=== PATIENT | female | born 2000 | race African-American/Black ===

== ENCOUNTER 2020-08-16 14:42 | Emergency (ER) | payer OTHER ==
--- NOTE | 2020-08-16 15:38 | ER Document Report ---
ED Medical Screen (RME) - General Chief Complaint: Vaginal Bleeding Stated Complaint: VAGINAL BLEEDING Time Seen by Provider: 08/16/20 15:23 - HPI Notes: 08/16/20 15:33 19-year-old female presents to the emergency room today for complaints of anal bleeding after a bowel movement for the last 6 months. Decided to come to the emergency room today for evaluation. Unsure if she has a history of hemorrhoids. She went to urgent care, they advised that she follows up with her TREATER. She states she tried [id number] Preparation H without relief. Reports she does have painful bowel movements. Reports she has not been st raining with bowel movements. Last menstrual cycle was 07/28/2020. Denies any vaginal bleeding. Due to the fact were in triage, I do not have a bed to do a rectal evaluation, nor other privacy. I discussed with patient that she does need a rectal examination. She agreed to wait to be seen in the back. I have greeted and performed a rapid initial assessment of this patient. A comprehensive ED assessment and evaluation of the patient, analysis of test results and completion of the medical decision making process will be conducted by additional ED providers. PHYSICAL EXAMINATION: GENERAL: Well-appearing, well-nourished and in no acute distress. CV: s1, s2 regular LUNGS: No respiratory distress The patient was evaluated during a global COVID-19 pandemic and that diagnosis was suspected/considered upon their initial presentation. Their evaluation, treatment and testing was consistent with current guidelines for patients who present with complaints or symptoms and may be related to COVID-19. I Physical Exam - Vital signs Vitals: Temp Pulse Resp BP Pulse Ox 98.4 F 97 H 16 130/67 H 99 08/16/20 14:43 08/16/20 14:43 08/16/20 14:43 08/16/20 14:43 08/16/20 14:43 Course - Vital Signs Vital signs: Temp Pulse Resp BP Pulse Ox 98.4 F 97 H 16 130/67 H 99 08/16/20 14:43 08/16/20 14:43 08/16/20 14:43 08/16/20 14:43 08/16/20 14:43
--- NOTE | 2020-08-16 16:03 | ER Document Report ---
HPI - HPI Time Seen by Provider: 08/16/20 15:23 Pain Level: 3 Notes: 19-year-old female presents to the emergency room today for complaints of anal bleeding after a bowel movement for the last 6 months. Decided to come to the emergency room today for evaluation. Unsure if she has a history of hemorrhoids. 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 She states she tried [id number] Preparation H without relief. Reports she does have painful bowel movements. Reports she has not been straining with bowel movements. Last menstrual cycle was 07/28/2020. Denies any vaginal bleeding. Denies fevers, chills, chest pain,palpitations, shortness of breath, dyspnea, nausea, vomiting, diarrhea, abdominal pain, hematuria,b LH, dizziness, syncope, headaches, wheezing, ST, URI, neck pain, weakness, bowel or bladder dysfunction, saddle anesthesia, numbness or tingling in bilateral upper or lower extremities equally, muscle paralysis, weakness in bilateral upper or lower extremities equally or rash. - REPRODUCTIVE LMP: 28 july Reproductive: DENIES: : Past Medical History - General Information source: Patient - Social History Smoking Status: Never Smoker Frequency of alcohol use: Occasional Family History: Reviewed & Not Pertinent Patient has homicidal ideation: No Vertical Provider Document - CONSTITUTIONAL Agree With Documented VS: Yes Exam Limitations: No Limitations General Appearance: WD/WN Notes: MEDICATIONS: I agree with the patient medications as charted by the RN. ALLERGIES: I agree with the allergies as charted by the RN. PAST MEDICAL HISTORY/PAST SURGICAL HISTORY: Reviewed and agree as charted by RN. SOCIAL HISTORY: Reviewed and agree as charted by RN. FAMILY HISTORY: No significant familial comorbid conditions directly related to patient complaint EXAM: Reviewed vital signs as charted by RN. PHYSICAL EXAMINATION: reviewed vital signs by RN GENERAL: Well-appearing, well-nourished and in no acute distress. HEAD: Atraumatic, normocephalic. EYES: Pupils equal round and reactive to light, extraocular movements intact, conjunctiva are normal. ENT: Nares patent, oropharynx clear without exudates. Moist mucous membranes. NECK: Normal range of motion, supple without lymphadenopathy LUNGS: Breath sounds clear to auscultation bilaterally and equal. No wheezes rales or rhonchi. HEART: Regular rate and rhythm without murmurs ABDOMEN: Soft, nontender, nondistended abdomen. No guarding, no rebound. No masses appreciated. Female : Rectum with external nonthrombosed hemorrhoid at 6 o'clock Musculoskeletal: Normal range of motion, no pitting or edema. No cyanosis. NEUROLOGICAL: Cranial nerves grossly intact. Normal speech, normal gait. Normal sensory, motor exams PSYCH: Normal mood, normal affect. SKIN: Warm, Dry, normal turgor, no rashes or lesions noted. Course - Re-evaluation Re-evalutation: 08/16/20 16:10 Afebrile vital stable no distress. Nurses notes reviewed. Presentation is most consistent with uncomplicated external hemorrhoids. I do not suspect a more significant lower GI bleed or upper GI bleed based on history, vitals, and patient's overall well appearance. The patient will be discharged home on conservative treatment recommendations as well as recommendations for close outpatient follow-up. Return precautions have been reviewed. After performing a Medical Screening Examination, I estimate there is LOW risk for ACUTE APPENDICITIS, BOWEL OBSTRUCTION, ACUTE CHOLECYSTITIS, PERFORATED DIVERTICULITIS, INCARCERATED HERNIA, PANCREATITIS, PELVIC INFLAMMATORY DISEASE, PERFORATED ULCER, ECTOPIC , or TUBO-OVARIAN ABSCESS, thus I consider the discharge disposition reasonable. Also, there is no evidence or peritonitis, sepsis, or toxicity. I have reevaluated this patient multiple times and no significant life threatening changes are noted. The patient and I have discussed the diagnosis and risks, and we agree with discharging home with close follow-up with the unde rstanding that symptoms and presentations can change. We also discussed returning to the Emergency Department immediately if new or worsening symptoms occur. We have discussed the symptoms which are most concerning (e.g., bloody stool, fever, changing or worsening pain, vomiting) that necessitate immediate return. - Vital Signs Vital signs: Temp Pulse Resp BP Pulse Ox 98.4 F 97 H 16 130/67 H 99 08/16/20 14:43 08/16/20 14:43 08/16/20 14:43 08/16/20 14:43 08/16/20 14:43 - Laboratory Results Critical Laboratory Results Reviewed: No Critical Results - Radiology Results Critical Radiology Results Reviewed: No Critical Results Discharge - Discharge Clinical Impression: Hemorrhoids, external without complications Condition: Stable Disposition: HOME, SELF-CARE Instructions: Hemorrhoids ([facility]) Additional Instructions: You were seen today for hemorrhoids. The best treatment is to avoid straining while having bowel moments, avoiding heavy lifting, or any other activity that causes you to bear down forcefully. You need to make sure that your stools are soft and should start taking Docusate 200mg in the morning and at night until your stools are very soft and you can have a bowel movement without any straining. You can also soak in warm water, apply topical hemorrhoid cream that can be purchased at the store, and take tylenol or ibuprofen per box instructions as needed for pain. Please follow-up with your primary doctor. Return if you begin to have persistent bleeding, worsening pain, abdominal pain, fever >101, or any other symptoms that are concerning to you. Return immediately for any new or worsening symptoms. Follow up with primary care provider, call tomorrow to make followup appointment. Prescriptions: Phenylephrine HCl [Anusol Suppository] 1 supp.rect MT BID #28 supp.rect Hydrocortisone [Anusol-Hc] 30 gm RC BID #1 cream.gm. Referrals: SUZETTE HOLBROOK MD [COMMUNITY BASED STAFF] - Follow up as needed
[2020-08-16 16:44] VITALS: BP 119/71
== END 2020-08-16 16:53 | disposition home or self-care (01) ==
LOC: ER 14:42
DX: K64.4 Residual hemorrhoidal skin tags (principal)
CPT/HCPCS: 99284

== ENCOUNTER 2020-09-04 13:27 | Emergency (ER) | payer OTHER ==
--- NOTE | 2020-09-04 14:15 | ER Document Report ---
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 Patient is concerned that she may be miscarrying. Denies any nausea, vomiting, diarrhea, abdominal pain, fever chills, chest pain or shortness of breath. Denies any trauma. States she does have regular menstrual cycles. She reports this is her first . I have greeted and performed a rapid initial assessment of this patient. A comprehensive ED assessment and evaluation of the patient, analysis of test results and completion of the medical decision making process will be conducted by additional ED providers. PHYSICAL EXAMINATION: GENERAL: Well-appearing, well-nourished and in no acute distress. CV: s1, s2 regular LUNGS: No respiratory distress abd: suprapubic tenderness, no cva tenderness Musculoskeletal: Normal range of motion NEUROLOGICAL: Normal speech, normal gait. SKIN: Warm, Dry, normal turgor, no rashes or lesions noted. The patient was evaluated during a global COVID-19 pandemic and that diagnosis was suspected/considered upon their initial presentation. Their evaluation, treatment and testing was consistent with current guidelines for patients who present with complaints or symptoms and may be related to COVID-19. Physical Exam - Vital signs Vitals: Temp Pulse Resp BP Pulse Ox 98.9 F 113 H 16 130/74 H 99 09/04/20 13:09/04/20 13:09/04/20 13:09/04/20 13:09/04/20 13:31 Course - Vital Signs Vital signs: Temp Pulse Resp BP Pulse Ox 98.9 F 113 H 16 130/74 H 99 09/04/20 13:09/04/20 13:31 09/04/20 13:31 09/04/20 13:31 09/04/20 13:31
[2020-09-04 14:36] LABS: ABSOLUTE BASOPHILS # (AUTO) 0.1 10^3/uL (0.0-0.2); ABSOLUTE EOSINOPHILS # (AUTO) 0.1 10^3/uL (0.0-0.6); ABSOLUTE LYMPHOCYTES (AUTO) 1.9 10^3/uL (0.5-4.7); ABSOLUTE MONOCYTES (AUTO) 0.5 10^3/uL (0.1-1.4); ABSOLUTE NEUT (AUTO) 5.9 10^3/uL (1.7-8.2); BASOPHILS % (AUTO) 0.8 % (0-2); EOSINOPHILS % (AUTO) 0.8 % (0-6); HEMATOCRIT 34.8 % (36.0-47.0); HEMOGLOBIN 11.7 g/dL (12.0-15.5); LYMPHOCYTES % (AUTO) 22.9 % (13-45); MEAN CORPUSCULAR HEMOGLOBIN 22.8 pg (27.0-33.4); MEAN CORPUSCULAR HGB CONC 33.7 g/dL (32.0-36.0); MEAN CORPUSCULAR VOLUME 68 fl (80-97); MONOCYTES % (AUTO) 6.3 % (3-13); PLATELET COUNT 283 10^3/uL (150-450); RED BLOOD COUNT 5.15 10^6/uL (3.72-5.28); RED CELL DISTRIBUTION WIDTH 16.4 % (11.5-14.0); SEGMENTED NEUTROPHILS % (AUTO) 69.2 % (42-78); TOTAL CELLS COUNTED % (AUTO) 100 %; WHITE BLOOD COUNT 8.5 10^3/uL (4.0-10.5)
[2020-09-04 14:59] LABS: ALBUMIN 4.5 g/dL (3.7-5.6); ALKALINE PHOSPHATASE 103 U/L (50-135); ANION GAP 9 (5-19); ASPARTATE AMINO TRANSFERASE 26 U/L (5-30); BILIRUBIN,DIRECT 0.1 mg/dL (0.0-0.4); BILIRUBIN,TOTAL 0.3 mg/dL (0.2-1.3); BLOOD UREA NITROGEN 9 mg/dL (7-20); CALCIUM 9.6 mg/dL (8.4-10.2); CARBON DIOXIDE 25 mmol/L (22-30); CHLORIDE 104 mmol/L (98-107); GLUCOSE 99 mg/dL (75-110); TOTAL PROTEIN 7.9 g/dL (6.3-8.2)
--- NOTE | 2020-09-04 15:48 | RADIOLOGY REPORT (SQ) ---
EXAM DESCRIPTION: U/S OB TRANSVAGINAL W/O DOP IMAGES COMPLETED DATE/TIME: 09/04/2020 2:53 pm REASON FOR STUDY: vaginal spotting, lmp 07/28/20, +preg test today COMPARISON: None. TECHNIQUE: Transvaginal static and realtime grayscale images acquired of the pelvis. Additional leo cted spectral and color Doppler images recorded. All images stored on PACs. CLINICAL AGE: 5 weeks 3 days bHCG: Not available. LIMITATIONS: None. FINDINGS: UTERUS: No masses. No anomalies. GESTATIONAL SAC: Abnormal shape. Sac diameter corresponding to 5 weeks. YOLK SAC: No. POLE: None present RIGHT ADNEXA: Normal ovary with normal vascular flow. No adnexal free fluid. No adnexal masses. LEFT ADNEXA: Normal ovary with normal vascular flow. No adnexal free fluid. No adnexal masses. FREE FLUID: None. OTHER: No other significant finding. IMPRESSION: POSSIBLE EARLY INTRAUTERINE . BHCG LEVEL NOT AVAILABLE FOR CORRELATION WITH US FINDINGS. CONSIDER F/U BHCG AND/OR ULTRASOUND FOR VERIFICATION AND TO EXCLUDE ECTOPIC . Trimester of : First trimester - 0 to 13 weeks. TECHNICAL DOCUMENTATION: JOB ID: [id number] 2010 [employer]- All Rights Reserved Reading location - IP/workstation name: [email or web address]
--- NOTE | 2020-09-04 16:03 | ER Document Report ---
ED GI/ - General Chief Complaint: Abdominal Pain Stated Complaint: ABDOMINAL PAIN/5 WKS PREG Time Seen by Provider: 09/04/20 13:51 Primary Care Provider: [facility] [Provider Group] - Follow up in 3-5 days Notes: Patient is a G1, P0 19-year-old female presents emergency department with a chief complaint of vaginal bleeding. Patient reports that she noticed some vaginal bleeding this morning. She went to her SWIFT TENDER this morning for a normal checkup and found out that she was . She was then referred to [facility]. She came to the emergency department to get an ultras ound and have her labs drawn. She does have a follow-up appointment with [facility] on the . She denies any excessive sex. Denies any vaginal discharge. States that she was tested for gonorrhea and chlamydia and had a wet mount done over at her normal SWIFT TENDER. Denies dysuria or vaginal discharge. - Related Data Home Medications: vitamin Past Medical History - General Information source: Patient - Social History Smoking Status: Current Some Day Smoker Family History: Reviewed & Not Pertinent Review of Systems - Review of Systems Notes: REVIEW OF SYSTEMS: CONSTITUTIONAL : Denies recent illness. Denies recent unintentional weight loss. Denies fever, chills, or sweats. EENT: Denies eye, ear, throat, or mouth pain, discharge, or symptoms. Denies nasal or sinus congestion. CARDIOVASCULAR: Denies chest pain. RESPIRATORY: Denies shortness of breath, cough, congestion, difficulty breathing, or wheezing. GASTROINTESTINAL: Denies nausea, vomiting, and diarrhea. Denies abdominal pain. Denies constipation. GENITOURINARY: Denies difficulty urinating, burning, blood in urine, urgency or frequency. FEMALE GENITOURINARY: See HPI. MUSCULOSKELETAL: Denies neck and back pain. Denies joint pain or swelling. SKIN: Denies rash, itchiness, or lesions HEMATOLOGIC : Denies easy bruising or bleeding. LYMPHATIC: Denies swollen, painful, enlarged glands. NEUROLOGICAL: Denies no numbness or tingling denies weakness. Denies headache. Denies altered mental status. Denies alteration in speech. PSYCHIATRIC: Denies stress, anxiety, alteration in sleep patterns, or depression. All other systems reviewed and negative. Physical Exam - Vital signs Vitals: Temp Pulse Resp BP Pulse Ox 98.9 F 113 H 16 130/74 H 99 09/04/20 13:31 09/04/20 13:31 09/04/20 13:31 09/04/20 13:31 09/04/20 13:31 - Notes Notes: PHYSICAL EXAMINATION: GENERAL: Appears well, healthy, well-nourished, no acute distress. HEAD: Normocephalic, atraumatic. EYES: PERRL, conjunctiva normal, all extraocular movements intact, sclera nonicteric ENT: Moist mucous membranes. NECK: Supple, no noticeable swelling, redness, rash. Normal range of motion. LUNGS: Equal breath sounds bilaterally and clear to auscultation. No wheezes rales or rhonchi. CARDIOVASCULAR: S1-S2, regular rate, regular rhythm. Radial pulses 2+, normal. ABDOMEN: Normoactive bowel sounds. Soft, nontender, no guarding, no rebound te nderness, and no masses palpated. EXTREMITIES: Normal strength and range of motion, no pitting or edema. No cyanosis. NEUROLOGICAL: Moves all extremities upon command. Strength 5/5 in all extremi ties. PSYCH: Normal mood, normal affect. SKIN: Warm, dry. No rash, lesions, ulcerations noted. Normal skin turgor. Course - Re-evaluation Re-evalutation: 09/04/20 16:35 Hematology is unremarkable, other than a slight anemia with a hemoglobin of 11.7. Chemistries are unremarkable. LFTs are normal. Beta hCG is 1074. This is consistent with her transvaginal ultrasound shows a 5-week 3-day gestational sac. Patient is O+. No RhoGam indicated. Patient agrees [facility]. Follow-up precautions were given. Verbal discharge instructions were given to the patient. They verbalized understanding. They are stable for discharge. - Vital Signs Vital signs: Temp Pulse Resp BP Pulse Ox 98.9 F 98 H 18 128/72 H 100 09/04/20 13:31 09/04/20 16:54 09/04/20 16:54 09/04/20 16:54 09/04/20 16:54 - Laboratory Results Result Diagrams: 09/04/20 14:15 09/04/20 14:15 Laboratory Results Interpreted: 01/12/21 01/12/21 14:15 14:15 Hgb 11.7 L Hct 34.8 L MCV 68 L MCH 22.8 L RDW 16.4 H Beta HCG, Quant 1074.50 H Critical Laboratory Results Reviewed: No Critical Results - Radiology Results Critical Radiology Results Reviewed: No Critical Results Discharge - Discharge Clinical Impression: Vaginal bleeding during Condition: Stable Disposition: HOME, SELF-CARE Additional Instructions: Your ultrasound today shows a gestational sac. Please follow closely with your primary care SWIFT TENDER. Please return if you develop severe abdominal pain, bleeding that goes through more than 2 pads for more than 2 hours, pass out, or have any other symptoms that are concerning to you. Please follow-up closely with your OBGYN regarding todays visit. Referrals: [facility] [Provider Group] - Follow up in 3-5 days
[2020-09-04 16:55] VITALS: BP 128/72
== END 2020-09-04 16:55 | disposition home or self-care (01) ==
LOC: ER 13:27
DX: O20.9 Hemorrhage in early pregnancy, unspecified (principal); O99.011 Anemia complicating pregnancy, first trimester; D64.9 Anemia, unspecified; O99.331 Smoking (tobacco) complicating pregnancy, first trimester; F17.200 Nicotine dependence, unspecified, uncomplicated; Z79.899 Other long term (current) drug therapy; Z3A.01 Less than 8 weeks gestation of pregnancy
CPT/HCPCS: 36415; 76817; 80053; 84702; 85025; 86900; 86901; 99284

== ENCOUNTER 2020-09-08 12:28 | Emergency (ER) | payer OTHER ==
--- NOTE | 2020-09-08 12:56 | ER Document Report ---
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 Patient sees [facility]. Has not yet had ultrasound imaging for this . She was concerned about the spotting today has not even had to use a menstrual pad it was only when she was wiping after urinating. Patient was concerned and came to the emergency department. Patient believes she is approximately 5 to 6 weeks by dates PHYSICAL EXAMINATION: exam deferred in triage no tenderness on palpation of the abdomen gravid uterus not palpable. I have greeted and performed a rapid initial assessment of this patient. A comprehensive ED assessment and evaluation of the patient, analysis of test results and completion of medical decision making process will be conducted by an additional ED providers. Please note that clinical decision making for this patient was made during the 2019 pandemic of novel coronavirus which caused a significant strain on the healthcare system including at this particular facility. Criteria for admission discharge and level of care decisions as well as treatment decisions have necessarily changed - Related Data Allergies/Adverse Reactions: No Known Allergies Allergy (Unverified 09/08/20 12:45) Home Medications: Past Medical History - Social History Chew tobacco use (# tins/day): No Frequency of alcohol use: Occasional Drug Abuse: None Physical Exam - Vital signs Vitals: Temp Pulse Resp BP Pulse Ox 98.1 F 95 H 20 130/78 H 99 09/08/20 12:32 09/08/20 12:32 09/08/20 12:32 09/08/20 12:32 09/08/20 12:32 Course - Vital Signs Vital signs: Temp Pulse Resp BP Pulse Ox 98.1 F 95 H 20 130/78 H 99 09/08/20 12:32 09/08/20 12:32 09/08/20 12:32 09/08/20 12:32 09/08/20 12:32
[2020-09-08 13:52] LABS: APPEARANCE,URINE CLEAR; BILIRUBIN,URINE NEGATIVE (NEGATIVE); COLOR,URINE YELLOW; GLUCOSE, URINE NEGATIVE (NEGATIVE); KETONES,URINE NEGATIVE (NEGATIVE); LEUKOCYTE ESTERASE,URINE MODERATE (NEGATIVE); NITRITE,URINE NEGATIVE (NEGATIVE); PROTEIN,URINE NEGATIVE (NEGATIVE); URINE SPECIFIC GRAVITY 1.016; UROBILINOGEN,URINE NEGATIVE mg/dL (<2.0)
--- NOTE | 2020-09-08 14:03 | RADIOLOGY REPORT (SQ) ---
EXAM DESCRIPTION: U/S OB TRANSVAGINAL W/O DOP IMAGES COMPLETED DATE/TIME: 09/08/2020 1:37 pm REASON FOR STUDY: vag spotting COMPARISON: 09/04/2020 TECHNIQUE: Endovaginal static and realtime grayscale images acquired of the pelvis. Additional selec rocky spectral and color Doppler images recorded. All images stored on PACs. CLINICAL AGE: Last menses 07/28/2020 bHCG: Not available LIMITATIONS: None. FINDINGS: UTERUS: No masses. No anomalies. Uterus measures 8 x 5 x 4 cm in size GESTATIONAL SAC: Normal shape. Surrounding decidual reaction. Gestational sac diameter of 6.9 mm co rrelates with 5 weeks 5 days. YOLK SAC: Not identified POLE: Not identified RIGHT ADNEXA: Normal ovary with normal vascular flow. Right ovary 3.1 x 2.4 x 1.7 cm No adnexal free fluid. No adnexal masses. LEFT ADNEXA: Normal ovary with normal vascular flow. Left ovary 3.4 x 2.1 x 2.1 cm in size. 16 mm l eft ovarian cyst likely the corpus luteum. No adnexal free fluid. No adnexal masses. FREE FLUID: None. OTHER: No other significant finding. IMPRESSION: EARLY INTRAUTERINE . Estimated age 5 weeks 5 days 16 mm cyst left ovary, likely the corpus luteum. Trimester of : First trimester - 0 to 13 weeks. TECHNICAL DOCUMENTATION: JOB ID: [id number] 2010 [employer]- All Rights Reserved Reading location - IP/workstation name: [id number]
[2020-09-08 15:23] LABS: ABSOLUTE BASOPHILS # (AUTO) 0.1 10^3/uL (0.0-0.2); ABSOLUTE EOSINOPHILS # (AUTO) 0.1 10^3/uL (0.0-0.6); ABSOLUTE LYMPHOCYTES (AUTO) 2.1 10^3/uL (0.5-4.7); ABSOLUTE MONOCYTES (AUTO) 0.5 10^3/uL (0.1-1.4); ABSOLUTE NEUT (AUTO) 5.3 10^3/uL (1.7-8.2); BASOPHILS % (AUTO) 1.2 % (0-2); EOSINOPHILS % (AUTO) 0.8 % (0-6); HEMATOCRIT 38.2 % (36.0-47.0); HEMOGLOBIN 12.8 g/dL (12.0-15.5); LYMPHOCYTES % (AUTO) 26.3 % (13-45); MEAN CORPUSCULAR HEMOGLOBIN 22.7 pg (27.0-33.4); MEAN CORPUSCULAR HGB CONC 33.4 g/dL (32.0-36.0); MEAN CORPUSCULAR VOLUME 68 fl (80-97); MONOCYTES % (AUTO) 6.5 % (3-13); PLATELET COUNT 260 10^3/uL (150-450); RED BLOOD COUNT 5.63 10^6/uL (3.72-5.28); RED CELL DISTRIBUTION WIDTH 16.2 % (11.5-14.0); SEGMENTED NEUTROPHILS % (AUTO) 65.2 % (42-78); TOTAL CELLS COUNTED % (AUTO) 100 %; WHITE BLOOD COUNT 8.1 10^3/uL (4.0-10.5)
[2020-09-08 15:40] LABS: ALBUMIN 4.8 g/dL (3.7-5.6); ALKALINE PHOSPHATASE 97 U/L (50-135); ANION GAP 7 (5-19); ASPARTATE AMINO TRANSFERASE 25 U/L (5-30); BILIRUBIN,DIRECT 0.1 mg/dL (0.0-0.4); BILIRUBIN,TOTAL 0.5 mg/dL (0.2-1.3); BLOOD UREA NITROGEN 11 mg/dL (7-20); CALCIUM 9.9 mg/dL (8.4-10.2); CARBON DIOXIDE 25 mmol/L (22-30); CHLORIDE 105 mmol/L (98-107); GLUCOSE 88 mg/dL (75-110); POTASSIUM 4.1 mmol/L (3.6-5.0); TOTAL PROTEIN 8.5 g/dL (6.3-8.2)
--- NOTE | 2020-09-08 16:39 | ER Document Report ---
ED General - General Chief Complaint: Vaginal Bleeding Stated Complaint: VAGINAL BLEEDING/6 WKS PREG Time Seen by Provider: 09/08/20 12:53 - HPI Notes: Patient is a 19-year-old female, G1, P0, last menstrual period on July 28, who presents emergency department for evaluation of vaginal bleeding. She states it was dark. It was really only when she went to the bathroom. She has not had any pain or cramping. She has not required a menstrual pad. - Related Data Allergies/Adverse Reactions: No Known Allergies Allergy (Unverified 09/08/20 12:45) Home Medications: Past Medical History - General Information source: Patient - Social History Smoking Status: Current Some Day Smoker - Vape Chew tobacco use (# tins/day): No Frequency of alcohol use: Occasional Drug Abuse: None Family History: Reviewed & Not Pertinent Review of Systems - Review of Systems Constitutional: No symptoms reported EENT: No symptoms reported Cardiovascular: No symptoms reported Respiratory: No symptoms reported Gastrointestinal: No symptoms reported Genitourinary: No symptoms reported Female Genitourinary: See HPI Musculoskeletal: No symptoms reported Skin: No symptoms reported Neurological/Psychological: No symptoms reported Physical Exam - Vital signs Vitals: Temp Pulse Resp BP Pulse Ox 98.1 F 95 H 20 130/78 H 99 09/08/20 12:32 09/08/20 12:32 09/08/20 12:32 09/08/20 12:32 09/08/20 12:32 - Notes Notes: Vital signs reviewed, please refer to chart. Head is normocephalic, atraumatic. Pupils equal round, reactive to light. Neck is supple without meningismus. Heart is regular rate and rhythm. Lungs are clear to auscultation bilaterally. Abdomen is soft, nontender, normoactive bowel sounds throughout. Extremities without cyanosis, clubbing. Posterior calves are nontender. Peripheral pulses are equal. Skin is warm and dry. Patient is awake, alert, neurological exam is nonfocal. Course - Re-evaluation Re-evalutation: 09/08/20 16:43 Patient presents to the emergency department for evaluation. She laboratory investigations and imaging is ordered through triage. Her blood bank history showed her already to be Rh+. Ultrasound dates and first menstrual period dates match. I checked her quantitative hCG in the past, and it is trending upwards, appropriately. Patient was reassured. She is to follow-up with OUTPLACEMENT CONSULTANT. She is to return to the ED with worsening or new concerning symptoms of any sort. - Vital Signs Vital signs: Temp Pulse Resp BP Pulse Ox 98.1 F 95 H 20 130/78 H 99 09/08/20 12:32 09/08/20 12:32 09/08/20 12:32 09/08/20 12:32 09/08/20 12:32 - Laboratory Results Result Diagrams: 09/08/20 15:10 09/08/20 15:10 Laboratory Results Interpreted: 09/08/20 09/08/20 09/08/20 12:57 15:10 15:10 RBC 5.63 H MCV 68 L MCH 22.7 L RDW 16.2 H Total Protein 8.5 H Beta HCG, Quant 8633.10 H Urine Blood SMALL H Ur Leukocyte Esterase MODERATE H Critical Laboratory Results Reviewed: No Critical Results - Radiology Results Radiology Results Interpreted: 09/08/20 16:43 Obstetrics Ultrasound 09/08/20 12:55 IMPRESSION: EARLY INTRAUTERINE . Estimated age 5 weeks 5 days 16 mm cyst left ovary, likely the corpus luteum. Trimester of : First trimester - 0 to 13 weeks. Critical Radiology Results Reviewed: No Critical Results Discharge - Discharge Clinical Impression: Vaginal bleeding during Condition: Stable Disposition: HOME, SELF-CARE Instructions: Bleeding During Early ([facility]) Additional Instructions: Your quantitative beta-hCG, or the hormone, is rising appropriately. Your ultrasound shows a gestational sac measuring 5 weeks and 5 days, which is closely matching your dates. Please follow-up closely with OUTPLACEMENT CONSULTANT. Continue your vitamin. Return to the emergency department if you develop worsening or new concerning symptoms of any sort.
[2020-09-08 16:49] VITALS: BP 122/76
== END 2020-09-08 16:49 | disposition home or self-care (01) ==
LOC: ER 12:28
DX: O20.9 Hemorrhage in early pregnancy, unspecified (principal); O34.81 Maternal care for other abnormalities of pelvic organs, first trimester; N83.202 Unspecified ovarian cyst, left side; O99.331 Smoking (tobacco) complicating pregnancy, first trimester; F17.290 Nicotine dependence, other tobacco product, uncomplicated; Z79.899 Other long term (current) drug therapy; Z3A.01 Less than 8 weeks gestation of pregnancy
CPT/HCPCS: 36415; 76817; 80053; 81001; 83690; 84702; 85025; 99284

== ENCOUNTER 2020-09-15 19:53 | Emergency (ER) | payer OTHER ==
[2020-09-15] MEDS ORDERED: METOCLOPRAMIDE HCL 10 MG TABLET PO ONE (20:26)
--- NOTE | 2020-09-15 20:26 | ER Document Report ---
ED Medical Screen (RME) - General Chief Complaint: Abdominal Pain Stated Complaint: ABDOMINAL PAIN,LIGHTHEADNESS Time Seen by Provider: 09/15/20 20:14 Notes: Patient is a 19-year-old female is a 19-year-old female who is currently 7 weeks who presents emergency department with a chief complaint of abdominal pain. She states that [facility] and was told that there was no gestational sac. States that she continues to have pain. Reports some nausea and slight vomiting. Exam: Alert and oriented. I have greeted and performed a rapid initial assessment of this patient. A comprehensive ED assessment and evaluation of the patient, analysis of test results and completion of medical decision making process will be conducted by an additional ED providers. - Related Data Allergies/Adverse Reactions: No Known Allergies Allergy (Unverified 09/08/20 12:45) Home Medications: prenatals Past Medical History - Social History Frequency of alcohol use: None Drug Abuse: None Physical Exam - Vital signs Vitals: Temp Pulse Resp BP Pulse Ox 98.5 F 94 H 18 126/77 H 100 09/15/20 20:08 09/15/20 20:08 09/15/20 20:08 09/15/20 20:08 09/15/20 20:08 Course - Vital Signs Vital signs: Temp Pulse Resp BP Pulse Ox 98.5 F 94 H 18 126/77 H 100 09/15/20 20:08 09/15/20 20:08 09/15/20 20:08 09/15/20 20:08 09/15/20 20:08 - Laboratory Results Result Diagrams: 09/15/20 20:45 09/15/20 20:45 Laboratory Results Interpreted: 09/15/20 09/15/20 09/15/20 20:23 20:45 20:45 RBC 5.40 H MCV 68 L MCH 22.2 L RDW 16.7 H Sodium 135.4 L Ur Leukocyte Esterase TRACE H Urine Ascorbic Acid 20 H
[2020-09-15 20:40] LABS: APPEARANCE,URINE CLEAR; BILIRUBIN,URINE NEGATIVE (NEGATIVE); COLOR,URINE YELLOW; GLUCOSE, URINE NEGATIVE (NEGATIVE); KETONES,URINE NEGATIVE (NEGATIVE); LEUKOCYTE ESTERASE,URINE TRACE (NEGATIVE); NITRITE,URINE NEGATIVE (NEGATIVE); PROTEIN,URINE NEGATIVE (NEGATIVE); URINE SPECIFIC GRAVITY 1.019; UROBILINOGEN,URINE NEGATIVE mg/dL (<2.0)
[2020-09-15 20:57] LABS: ABSOLUTE BASOPHILS # (AUTO) 0.1 10^3/uL (0.0-0.2); ABSOLUTE EOSINOPHILS # (AUTO) 0.1 10^3/uL (0.0-0.6); ABSOLUTE LYMPHOCYTES (AUTO) 2.3 10^3/uL (0.5-4.7); ABSOLUTE MONOCYTES (AUTO) 0.8 10^3/uL (0.1-1.4); ABSOLUTE NEUT (AUTO) 6.4 10^3/uL (1.7-8.2); BASOPHILS % (AUTO) 0.8 % (0-2); EOSINOPHILS % (AUTO) 1.1 % (0-6); HEMATOCRIT 36.9 % (36.0-47.0); LYMPHOCYTES % (AUTO) 23.9 % (13-45); MEAN CORPUSCULAR HEMOGLOBIN 22.2 pg (27.0-33.4); MEAN CORPUSCULAR HGB CONC 32.4 g/dL (32.0-36.0); MEAN CORPUSCULAR VOLUME 68 fl (80-97); PLATELET COUNT 273 10^3/uL (150-450); RED CELL DISTRIBUTION WIDTH 16.7 % (11.5-14.0); SEGMENTED NEUTROPHILS % (AUTO) 66.2 % (42-78); TOTAL CELLS COUNTED % (AUTO) 100 %; WHITE BLOOD COUNT 9.7 10^3/uL (4.0-10.5)
[2020-09-15 21:12] LABS: ALBUMIN 4.1 g/dL (3.7-5.6); ALKALINE PHOSPHATASE 83 U/L (50-135); ANION GAP 8 (5-19); ASPARTATE AMINO TRANSFERASE 20 U/L (5-30); BILIRUBIN,DIRECT 0.2 mg/dL (0.0-0.4); BILIRUBIN,TOTAL 0.3 mg/dL (0.2-1.3); BLOOD UREA NITROGEN 9 mg/dL (7-20); CALCIUM 9.5 mg/dL (8.4-10.2); CARBON DIOXIDE 25 mmol/L (22-30); CHLORIDE 102 mmol/L (98-107); GLUCOSE 106 mg/dL (75-110); POTASSIUM 4.2 mmol/L (3.6-5.0); TOTAL PROTEIN 7.5 g/dL (6.3-8.2)
--- NOTE | 2020-09-15 21:28 | ER Document Report ---
ED GI/ - General Chief Complaint: Abdominal Pain Stated Complaint: ABDOMINAL PAIN,LIGHTHEADNESS Time Seen by Provider: 09/15/20 20:14 Primary Care Provider: [facility] [Provider Group] - Follow up as needed Mode of Arrival: Ambulatory Information source: Patient Notes: 19-year-old female presented to ED for complaint of generalized abdominal pain. She states she is 1 para 0 and has had multiple ultrasounds but has not seen a heartbeat as yet. She states her last menstrual period was July. She states she was seen in the emergency room [facility] and had ultrasounds done the last one was on the and they did not see a heartbeat at that time. She states today she did have some abdominal pain so she came to the emergency room. Constitutional: Negative for fever. HENT: Negative for sore throat. Eyes: Negative for visual changes. Cardiovascular: Negative for chest pain. Respiratory: Negative for shortness of breath. Gastrointestinal: Generalized abdominal tenderness states she is supposed to be 5 to 7 weeks and has not had a heart tone yet on ultrasound and has had several ultrasounds. She states she developed abdominal pain today but no vaginal bleeding Genitourinary: Negative for dysuria. Musculoskeletal: Negative for back pain. Skin: Negative for rash. Neurological: Negative for headaches, weakness or numbness. 10 point ROS negative except as marked above and in HPI. VITAL SIGNS: Within normal limits. GENERAL: No acute distress, non-toxic appearance. HEAD: Normal with no signs of head trauma. EYES: PERRLA, EOMI, conjunctiva normal, no discharge. EARS: Hearing grossly intact. NOSE: Normal. THROAT: Oropharynx is normal. NECK: Normal range of motion, no tenderness, supple, no lymphadenopathy, No adenopathy, no JVD. CHEST: Clear breath sounds bilaterally. No wheezes, rales, or rhonchi. CARDIAC: Regular rate and rhythm. S1 and S2, without murmurs, gallops, or rubs. VASCULAR: No Edema. Peripheral pulses normal and equal in all extremities. ABDOMEN: Normal and soft she is having abdominal cramping level 4/5 generalized GASTROINTESTINAL: Bowel sounds normal GENITOURINARY: Normal, No tenderness LYMPATHTIC: No lymphadenopathy noted. MUSCULOSKELETAL: Good range of motion of all major joints. Extremities without clubbing, cyanosis or edema. NEUROLOGICAL: Alert and oriented x 3. No focal sensory or strength deficits. Speech normal. Follows commands appropriately. PSYCHIATRIC: Normal Affect, judgement and mood. SKIN: Normal appearance with no rashes or lesions. - HPI Patient complains to provider of: Abdominal pain, Pelvic pain, Onset: This afternoon Timing/Duration: Intermittent Quality of pain: Cramping Severity at maximum: Severe Severity in ED: Moderate Pain Level: 4 Location: Other Vaginal bleeding (Compared to normal period): None - Mild abdominal pain LMP: July 28, 2020 : 1 Para: 0 OB ultrasound done: Yes Associated symptoms: Other - Abdominal pain Exacerbated by: Movement, Walking Relieved by: Denies Similar symptoms previously: Yes Recently seen / treated by doctor: Yes - Related Data Allergies/Adverse Reactions: No Known Allergies Allergy (Unverified 09/08/20 12:45) Home Medications: prenatals Past Medical History - General Information source: Patient - Social History Smoking Status: Former Smoker Frequency of alcohol use: Occasional Drug Abuse: None Lives with: Family Family History: Reviewed & Not Pertinent Patient has homicidal ideation: No - Past Medical History Cardiac Medical History: Reports: None Pulmonary Medical History: Reports: None EENT Medical History: Reports: None Neurological Medical History: Reports: None Endocrine Medical History: Reports: None Renal/ Medical History: Reports: None Malignancy Medical History: Reports: None GI Medical History: Reports: None Musculoskeletal Medical History: Reports None Skin Medical History: Reports None Psychiatric Medical History: Reports: None Traumatic Medical History: Reports: None Infectious Medical History: Reports: None Surgical Hx: Negative Past Surgical History: Reports: None Physical Exam - Vital signs Vitals: Temp Pulse Resp BP Pulse Ox 98.5 F 94 H 18 126/77 H 100 09/15/20 20:08 09/15/20 20:08 09/15/20 20:08 09/15/20 20:08 09/15/20 20:08 Course - Vital Signs Vital signs: Temp Pulse Resp BP Pulse Ox 97.7 F 87 17 135/74 H 100 09/15/20 23:41 09/15/20 23:41 09/15/20 23:41 09/15/20 23:41 09/15/20 23:41 - Laboratory Results Result Diagrams: 09/15/20 20:45 09/15/20 20:45 Laboratory Results Interpreted: 09/15/20 09/15/2009/15/21 20:23 20:45 20:45 RBC 5.40 H MCV 68 L MCH 22.2 L RDW 16.7 H Sodium 135.4 L Beta HCG, Quant 04616.00 H Ur Leukocyte Esterase TRACE H Urine Ascorbic Acid 20 H Critical Laboratory Results Reviewed: No Critical Results - Radiology Results Critical Radiology Results Reviewed: No Critical Results Discharge - Discharge Clinical Impression: Pelvic pain affecting in first trimester, antepartum, Nausea and vomiting early Condition: Stable Disposition: HOME, SELF-CARE Additional Instructions: Pelvic Pain in Lower abdominal pain during can have many causes. We look for serious causes such as appendicitis, tubal , miscarriage, placental separation, or urinary tract infection. Less serious causes of pain include corpus luteum cyst (ovarian cyst of ) or stretching of the pelvic tissues by the enlarging uterus. Sometimes the pain comes from the bowels. If no specific cause for the pain is found, we attribute the pain to stretching of the uterine ligaments. This is called "round ligament strain." It is not dangerous. Just rest until the pain goes away. Call us or come back for reexamination if any problems occur, such as: (1) Pain that becomes more severe, steady, or becomes concentrated in one specific area. Also, pain that is more severe with movement or coughing. (2) Vomiting that persists or becomes more frequent. (3) Blood in the vomitus, urine, or bowel movements. Blood in the stool may have a tarry or black appearance. (4) Shaking chills or fever greater than 100 degrees. (5) The abdomen becomes more distended or swollen. (6) Bowel movements cease. (7) Vaginal bleeding. Reglan (Metoclopramide) Reglan has been prescribed. This medicine affects the stomach and intestines. It can be used to treat nausea and vomiting, to prevent reflux of stomach acid up into the esophagus, or to increase the contractions of the stomach and intestines. It is often prescribed for esophagitis, and for paralysis of the stomach in diabetics. Reglan can cause either mild restlessness or drowsiness. You should contact the doctor at once if you become extremely restless, anxious, or cannot sleep, or if you develop uncontrollable motions of the lips, tongue, or jaw. Do not take alcohol with this medicine. Do not drive or operate machinery until you have been taking this medicine long enough to know how it affects you. Call the doctor if you develop abdominal pains, lightheadedness, black stool, or blood in the stool or vomitus. Intravenous (IV) Fluids As part of your care today, you received intravenous (IV) fluids. IV fluids are administered to patients who are dehydrated or to those who have certain chemical (electrolyte) abnormalities that need correcting. Acetaminophen Acetaminophen may be taken for pain relief or fever control. It's much safer than aspirin, offering a wider range of "safe" dosages. It is safe during . Some brand names are Tylenol, Panadol, Datril, Anacin 3, Tempra, and Liquiprin. Acetaminophen can be repeated every four hours. The following are maximum recommended dosages: WEIGHT Dose Drops Elixir Chewable(80mg) (LBS.) drprs=droppers tsp=teaspoon 6 40 mg .4 ml (1/2) 6-11 80 mg .8 ml (full) 1/2 tsp 1 tab 12-16 120 mg 1 1/2 drprs 3/4 tsp 1 1/2 tabs 17-23 160 mg 2 drprs 1 tsp 2 tabs 24-30 240 mg 3 drprs 1 1/2 tsp 3 tabs 30-35 320 mg 2 tsp 4 tabs 36-41 360 mg 2 1/4 tsp 4 1/2 tabs 42-47 400 mg 2 1/2 tsp 5 tabs 48-53 480 mg 3 tsp 6 tabs 54-59 520 mg 3 1/4 tsp 6 1/2 tabs 60-64 560 mg 3 1/2 tsp 7 tabs 65-70 600 mg 3 3/4 tsp 7 1/2 tabs 71-76 640 mg 4 tsp 8 tabs 77-82 720 mg 4 1/2 tsp 9 tabs 83-88 800 mg 5 tsp 10 tabs >89 pounds or adults 650 mg to 900 mg Acetaminophen can be repeated every four hours. Maximum daily dose not to exceed 4000 mg. These maximum recommended dosages are slightly higher than the dosages written on the product container, but these dosages are very safe and well below the toxic dosage for acetaminophen. I discussed with you your lab results as well as your ultrasound results. I have given you a written report of your labs and ultrasound reports. Please take these with you to your appointment with the [facility]. Prescriptions: Metoclopramide HCl [Reglan 10 mg Tablet] 10 mg PO TIDP PRN #14 tablet PRN Reason: Forms: Elevated Blood Pressure Referrals: [facility] [Provider Group] - Follow up as needed
[2020-09-15] MEDS ORDERED: NORMAL SALINE 1000 ML 1,000 ML IV ONE (21:48)
--- NOTE | 2020-09-15 22:36 | RADIOLOGY REPORT (SQ) ---
EXAM DESCRIPTION: US TRANSVAGINAL COMPLETED DATE/TME: 09/15/2020 21:58 CLINICAL HISTORY: 19 years, Female, pelvic pain; 7 weeks gestation COMPARISON: September 08, 2020 TECHNIQUE: Endovaginal images of the pelvis were obtained. Hilton scale imaging and Doppler imaging were performed. LIMITATIONS: None. FINDINGS: There is a single, live, intrauterine gestation with a crown-rump length of 2.4 mm, 5 weeks 6 days estimated age. There is a normal-appearing yolk sac. There is a heart rate of 104 bpm. There is a normal amount of amniotic fluid identified. There is an 8 x 6 x 4 mm subchorionic hemorrhage, new from the prior exam. There is a 1.9 cm left ovarian corpus luteum. No suspicious adnexal mass, free pelvic fluid, or evidence of ovarian torsion. IMPRESSION: Single, live, intrauterine gestation at approximate 5 weeks 6 days estimated age as per crown-rump length. There is an 8 mm subchorionic hemorrhage. copyright 2010 [employer]- All Rights Reserved
[2020-09-15 23:41] VITALS: BP 135/74
== END 2020-09-15 23:46 | disposition home or self-care (01) ==
LOC: ER 19:53
DX: O26.91 Pregnancy related conditions, unspecified, first trimester (principal); R10.2 Pelvic and perineal pain; R10.9 Unspecified abdominal pain; O21.9 Vomiting of pregnancy, unspecified; Z3A.01 Less than 8 weeks gestation of pregnancy
CPT/HCPCS: 99285; 96360; 96361; 36415; 84702; 83690; 85025; 80053; 81001; 76817; 93976; J7030